=== PATIENT | male | born 1955 | race African-American/Black ===

== ENCOUNTER 2019-04-24 17:16 | Inpatient (IN) | payer OTHER ==
[~2019-04-24] VITALS: Ht 167.6 cm; Wt 80.5 kg
[2019-04-24] MEDS ORDERED: VECURONIUM BROMIDE 10 MG/VIAL IV ONE ×2 (17:31→18:00)
[2019-04-24] MEDS ORDERED: SODIUM CHLORIDE 0.9% 10ML VIAL ONE (17:31)
[2019-04-24] MEDS ORDERED: ETOMIDATE 2MG/ML 10ML VIAL IV ONE ×2 (17:31→18:00)
[2019-04-24] MEDS ORDERED: PROPOFOL 10MG/ML 100ML 100 ML IV ONE ×3 (17:44→22:00)
[2019-04-24] MEDS ORDERED: SODIUM CHLORIDE 0.9% 1000ML BAG (SEPSIS BOLUS) IV ONE (18:00)
[2019-04-24] MEDS ORDERED: HYDROCORTISONE SOD SUCCINATE 100 MG/2 ML VIAL IV ONE (18:00)
[2019-04-24] MEDS ORDERED: VANCOMYCIN 1 G PREMIX 200 ML IV ONE (18:00)
[2019-04-24] MEDS ORDERED: PIPERACILLIN/TAZ 3.375G PREMIX 50 ML IV ONE (18:00)
[2019-04-24 18:23] LABS: BASOPHILS % 0.4 % (0.0-2.0); CHLORIDE 103 mEq/L (98-107); EOSINOPHILS % 0.1 % (0.0-5.0); HEMATOCRIT. 37.1 % (42.0-52.0); HEMOGLOBIN. 12.5 g/dL (14.0-18.0); LYMPHOCYTES % 45.9 % (20.0-50.0); MEAN CORPUSCULAR HEMOGLOBIN 35.7 pg (28.0-32.0); MEAN CORPUSCULAR VOLUME 106.2 fL (80.0-94.0); MEAN PLATELET VOLUME 8.8 fl (7.4-10.4); MONOCYTES % 13.6 % (2.0-8.0); PLATELET 199 x1000/uL (130-400); PROTHROMBIN TIME 10.5 sec (9.6-11.0); RED CELL DISTRIBUTION WIDTH 12.4 % (11.6-14.6)
[2019-04-24 18:28] LABS: ETHANOL BLOOD < 10 mg/dL
[2019-04-24 19:10] LABS: CLARITY URINE TURBID (CLEAR); COLOR URINE DARK YELLOW (YELLOW); KETONES URINE NEGATIVE (NEGATIVE); LEUKOCYTE ESTERASE URINE NEGATIVE (NEGATIVE); NITRITE URINE NEGATIVE (NEGATIVE); OCCULT BLOOD URINE 3+ (NEGATIVE); PROTEIN URINE 3+ (NEGATIVE); SPECIFIC GRAVITY URINE 1.022 (1.005-1.030)
[2019-04-24 19:37] LABS: *AMPHETAMINES SCREEN URINE NEGATIVE (NEGATIVE); *BARBITURATES SCREEN URINE NEGATIVE (NEGATIVE); *BENZODIAZEPINES SCREEN URINE NEGATIVE (NEGATIVE); *COCAINE SCREEN URINE NEGATIVE (NEGATIVE); CANNABINOID URINE SCREEN PRESUMTIVE POSITIVE (NEGATIVE); METHADONE URINE SCREEN NEGATIVE (NEGATIVE); OPIATES URINE SCREEN NEGATIVE (NEGATIVE); PHENCYCLIDINE URINE SCREEN NEGATIVE (NEGATIVE)
[2019-04-24] MEDS ORDERED: ENOXAPARIN 80MG/0.8ML SYR SUBCUT ONE (20:30)
[2019-04-24] MEDS ORDERED: FUROSEMIDE 40MG/4ML VIAL IVP ONE (20:45)
[2019-04-24 20:52] LABS: BG BASE EXCESS -5.3 mmol/L (-2.0-2.0); BG CARBOXYHEMOGLOBIN 0.6 % (0.5-1.5); BG DEOXYHEMOGLOBIN 18.1 % (0.0-5.0); BG FRACTION INSPIRED OXYGEN 100; BG HCO3 ACT 23.7 mmol/L (22.0-26.0); BG METHEMOGLOBIN 0.1 % (0.0-1.5); BG OXYGEN SATURATION 81.8 % (92.0-98.5); BG OXYHEMOGLOBIN 81.2 % (94.0-97.0); BG PCO2 62.6 mmHg (35.0-45.0); BG PH 7.196 (7.350-7.450); BG SAMPLE SITE RIGHT BRACHIAL; BG TIDAL VOLUME(mL) 500 mL; BG TOTAL HEMOGLOBIN 12.9 g/dL (12.0-18.0); BG VENT MODE VENT - A/C; BG VENT RATE 14 set
[2019-04-24] MEDS ORDERED: DEXTROSE 50% WATER 50ML SYRINGE IV PRN (21:15)
[2019-04-24] MEDS ORDERED: DIPHENHYDRAMINE 50MG/ML VIAL IV PRN (21:15)
[2019-04-24] MEDS ORDERED: ASPIRIN 325MG TABLET NG NR (21:15)
[2019-04-24] MEDS ORDERED: LORAZEPAM 2MG/ML CPJ IV PRN (21:15)
[2019-04-24] MEDS ORDERED: ONDANSETRON HCL 4MG/2ML INJ IV PRN (21:15)
[2019-04-24] MEDS ORDERED: CLOPIDOGREL 75MG TABLET NG NR (21:15)
[2019-04-24] MEDS ORDERED: ACETAMINOPHEN 650MG/20.3ML UDC NG PRN (21:15)
[2019-04-24 21:18] LABS: CREATINE KINASE MB FRACTION 18.4 ng/mL (0.5-3.6)
[2019-04-24] MEDS: SODIUM CHLORIDE 0.9% 1,000 ML IV SCH (22:03)
[2019-04-24 22:09] LABS: BG CARBOXYHEMOGLOBIN 0.6 % (0.5-1.5); BG FRACTION INSPIRED OXYGEN 100; BG HCO3 ACT 21.1 mmol/L (22.0-26.0); BG METHEMOGLOBIN 0.1 % (0.0-1.5); BG OXYGEN SATURATION 86.9 % (92.0-98.5); BG OXYHEMOGLOBIN 86.3 % (94.0-97.0); BG PCO2 38.6 mmHg (35.0-45.0); BG PH 7.356 (7.350-7.450); BG PO2 55.3 mmHg (75.0-100.0); BG SAMPLE SITE RIGHT BRACHIAL; BG TIDAL VOLUME(mL) 550 mL; BG TOTAL HEMOGLOBIN 12.9 g/dL (12.0-18.0); BG VENT MODE VENT - A/C; BG VENT RATE 14 set
[2019-04-24 23:05] VITALS: BP 145/98
[2019-04-24 23:10] VITALS: BP 145/98
[2019-04-24 23:15] VITALS: BP 147/90
[2019-04-24 23:30] VITALS: BP 140/90
[2019-04-24 23:45] VITALS: BP 140/90
[2019-04-25] VITALS (72 sets, daily range): BP systolic 78–149; BP diastolic 27–100
[2019-04-25] MEDS ORDERED: INSULIN LISPRO 100 UNITS/ML SUBCUT SCH ×2
[2019-04-25] MEDS ORDERED: BLOOD SUGAR DIAGNOSTIC STRIP TEST SCH
[2019-04-25] MEDS: BLOOD SUGAR DIAGNOSTIC STRIP TEST SCH ×6 (00:14→20:56)
[2019-04-25] MEDS: FUROSEMIDE 40MG/4ML VIAL IVP SCH ×2 (00:14→12:00)
[2019-04-25] MEDS: NITROGLYCERIN OINT 1GM/INCH UDPKT TD SCH ×3 (00:14→16:31)
[2019-04-25] MEDS: INSULIN LISPRO 100 UNITS/ML SUBCUT SCH ×7 (00:21→23:43)
[2019-04-25] MEDS: PROPOFOL 10MG/ML 100ML 100 ML IV PRN ×2 (00:56→18:41)
[2019-04-25] MEDS: ALBUTEROL (0.083%) 2.5MG/3ML NEB HHN SCH ×6 (01:19→21:16)
[2019-04-25] MEDS: VANCOMYCIN 1 G PREMIX 200 ML IV SCH ×2 (01:55→14:14)
[2019-04-25 02:18] LABS: BG BASE EXCESS -5.6 mmol/L (-2.0-2.0); BG CARBOXYHEMOGLOBIN 0.4 % (0.5-1.5); BG DEOXYHEMOGLOBIN 0.9 % (0.0-5.0); BG FRACTION INSPIRED OXYGEN 100; BG HCO3 ACT 18.1 mmol/L (22.0-26.0); BG METHEMOGLOBIN 0.4 % (0.0-1.5); BG OXYGEN SATURATION 99.1 % (92.0-98.5); BG OXYHEMOGLOBIN 98.3 % (94.0-97.0); BG PCO2 31.6 mmHg (35.0-45.0); BG PH 7.377 (7.350-7.450); BG SAMPLE SITE LEFT BRACHIAL; BG TIDAL VOLUME(mL) 600 mL; BG TOTAL HEMOGLOBIN 17.3 g/dL (12.0-18.0); BG VENT MODE VENT - A/C; BG VENT RATE 16 set
[2019-04-25] MEDS: PIPERACILLIN/TAZ 3.375G PREMIX 50 ML IV SCH ×3 (04:10→20:43)
[2019-04-25 05:37] LABS: BASOPHILS % 0.2 % (0.0-2.0); HEMATOCRIT. 34.6 % (42.0-52.0); LYMPHOCYTES % 46.1 % (20.0-50.0); MEAN CORPUSCULAR HEMOGLOBIN 36.4 pg (28.0-32.0); MEAN CORPUSCULAR VOLUME 105.4 fL (80.0-94.0); MEAN PLATELET VOLUME 8.3 fl (7.4-10.4); MONOCYTES % 12.5 % (2.0-8.0); NEUTROPHILS % 41.2 % (40.0-76.0); PLATELET 144 x1000/uL (130-400); RED BLOOD CELL COUNT 3.29 mill/uL (4.7-6.1); RED CELL DISTRIBUTION WIDTH 12.5 % (11.6-14.6)
[2019-04-25 05:51] LABS: CHLORIDE 106 mEq/L (98-107)
[2019-04-25 06:03] LABS: PHOSPHORUS 3.8 mg/dL (2.5-4.9)
[2019-04-25] MEDS ORDERED: POTASSIUM CHLORIDE 20MEQ/PACKET NG SCH (07:47)
[2019-04-25] MEDS ORDERED: KCL 20MEQ/100ML PREMIX 100 ML IV SCH (08:00)
[2019-04-25] MEDS ORDERED: IODIXANOL 320MG/ML 200ML BOTTLE ONE (08:25)
[2019-04-25] MEDS ORDERED: LIDOCAINE HCL 1% 20ML VIAL (Pyxis) INJ ONE (08:25)
[2019-04-25] MEDS ORDERED: POTASSIUM CHLORIDE INJ 40 MEQ in DEXT 5% WATER 250 ML IV SCH (09:00)
[2019-04-25] MEDS ORDERED: ENOXAPARIN 80MG/0.8ML SYR SUBCUT SCH (09:00)
[2019-04-25] MEDS ORDERED: PIPERACILLIN/TAZOBACTAM 3.375GM/50ML PREMIX IV ONE (09:00)
[2019-04-25] MEDS ORDERED: ACETAMINOPHEN 325MG TABLET PO PRN (09:15)
[2019-04-25] MEDS ORDERED: ATROPINE SULFATE 1MG/10ML SYR IV PRN (09:15)
[2019-04-25] MEDS: CLOPIDOGREL 75MG TABLET PO SCH ×2 (09:15→12:02)
[2019-04-25] MEDS ORDERED: VANCOMYCIN 1 G PREMIX 200 ML IV SCH (10:00)
[2019-04-25 10:17] LABS: BG BASE EXCESS -3.1 mmol/L (-2.0-2.0); BG CARBOXYHEMOGLOBIN 0.3 % (0.5-1.5); BG DEOXYHEMOGLOBIN 0.6 % (0.0-5.0); BG FRACTION INSPIRED OXYGEN 100; BG METHEMOGLOBIN 0.5 % (0.0-1.5); BG OXYGEN SATURATION 99.4 % (92.0-98.5); BG OXYHEMOGLOBIN 98.6 % (94.0-97.0); BG PCO2 34.3 mmHg (35.0-45.0); BG PH 7.405 (7.350-7.450); BG PO2 344.4 mmHg (75.0-100.0); BG SAMPLE SITE RIGHT BRACHIAL; BG TIDAL VOLUME(mL) 600 mL; BG TOTAL HEMOGLOBIN 11.7 g/dL (12.0-18.0); BG VENT MODE VENT - A/C; BG VENT RATE 16 set
[2019-04-25 10:19] LABS: T4 FREE 1.21 ng/dL (0.76-1.46)
[2019-04-25] MEDS ORDERED: PROPOFOL 10MG/ML 100ML 100 ML IV PRN (10:45)
[2019-04-25] MEDS ORDERED: MAGNESIUM 2 G PREMIX 50 ML IV NR (12:00)
[2019-04-25] MEDS: FAMOTIDINE 20MG/2ML VIAL IV SCH ×2 (12:01→20:43)
[2019-04-25 15:23] LABS: CREATINE KINASE MB FRACTION 6.3 ng/mL (0.5-3.6)
[2019-04-25] MEDS: ENOXAPARIN 80MG/0.8ML SYR SUBCUT SCH (16:31)
[2019-04-25] MEDS: SODIUM CHLORIDE 0.9% 1,000 ML IV SCH (20:56)
[2019-04-26] VITALS (38 sets, daily range): BP systolic 92–137; BP diastolic 59–86
[2019-04-26] MEDS: BLOOD SUGAR DIAGNOSTIC STRIP TEST SCH ×5 (00:15→16:30)
[2019-04-26] MEDS: NITROGLYCERIN OINT 1GM/INCH UDPKT TD SCH ×3 (00:21→16:31)
[2019-04-26] MEDS: FUROSEMIDE 40MG/4ML VIAL IVP SCH ×2 (00:21→12:32)
[2019-04-26] MEDS: ALBUTEROL (0.083%) 2.5MG/3ML NEB HHN SCH ×5 (00:27→15:36)
[2019-04-26] MEDS: VANCOMYCIN 1 G PREMIX 200 ML IV SCH (01:06)
[2019-04-26 01:24] LABS: CREATINE KINASE MB FRACTION 2.6 ng/mL (0.5-3.6)
[2019-04-26] MEDS: PIPERACILLIN/TAZ 3.375G PREMIX 50 ML IV SCH ×2 (03:19→12:32)
[2019-04-26] MEDS: INSULIN LISPRO 100 UNITS/ML SUBCUT SCH ×4 (03:21→16:31)
[2019-04-26] MEDS: ENOXAPARIN 80MG/0.8ML SYR SUBCUT SCH (05:31)
[2019-04-26 05:54] LABS: HEMOGLOBIN. 10.3 g/dL (14.0-18.0); MEAN CORPUSCULAR HEMOGLOBIN 35.9 pg (28.0-32.0); MEAN PLATELET VOLUME 8.7 fl (7.4-10.4); PLATELET 136 x1000/uL (130-400); RED BLOOD CELL COUNT 2.88 mill/uL (4.7-6.1); RED CELL DISTRIBUTION WIDTH 12.6 % (11.6-14.6)
[2019-04-26 06:31] LABS: CREATINE KINASE MB FRACTION 1.9 ng/mL (0.5-3.6)
[2019-04-26] MEDS: FAMOTIDINE 20MG/2ML VIAL IV SCH (08:06)
[2019-04-26 08:43] LABS: BG BASE EXCESS 0.8 mmol/L (-2.0-2.0); BG CARBOXYHEMOGLOBIN 0.3 % (0.5-1.5); BG DEOXYHEMOGLOBIN 2.4 % (0.0-5.0); BG FRACTION INSPIRED OXYGEN 40; BG HCO3 ACT 24.2 mmol/L (22.0-26.0); BG METHEMOGLOBIN 0.3 % (0.0-1.5); BG OXYGEN SATURATION 97.6 % (92.0-98.5); BG PCO2 34.2 mmHg (35.0-45.0); BG PH 7.468 (7.350-7.450); BG PO2 105.2 mmHg (75.0-100.0); BG SAMPLE SITE RIGHT BRACHIAL; BG TIDAL VOLUME(mL) 500 mL; BG TOTAL HEMOGLOBIN 10.6 g/dL (12.0-18.0); BG VENT MODE VENT - A/C; BG VENT RATE 16 set
[2019-04-26] MEDS ORDERED: POTASSIUM CHLORIDE INJ 40 MEQ in DEXT 5% WATER 250 ML IV NR (11:00)
[2019-04-26] MEDS ORDERED: PROPOFOL 10MG/ML 100ML 100 ML IV PRN (11:30)
[2019-04-26] MEDS ORDERED: VANCOMYCIN 1 G PREMIX 200 ML IV NR (13:00)
[2019-04-26 13:31] LABS: PLATELET ESTIMATE NORMAL
[2019-04-26] MEDS: SODIUM CHLORIDE 0.9% 1,000 ML IV SCH (15:29)
[2019-04-26] MEDS ORDERED: ATORVASTATIN CALCIUM 40MG TABLET PO SCH (21:00)
[2019-04-26] MEDS ORDERED: ENOXAPARIN 80MG/0.8ML SYR SUBCUT SCH (21:00)
[2019-04-27] MEDS ORDERED: VANCOMYCIN 1 G PREMIX 200 ML IV NR (01:00)
== END 2019-04-26 17:00 | disposition short-term general hospital (02) | DRG 280 ==
LOC: ER 17:16 → MICUSO 20:20 → EDBEDREQTM 20:25 → EDBEDREQ 20:25 → ENRESERV 20:39 → CANRESERV 20:39 → ENRESERV 22:20 → CVICU 04-25 09:04
PROVIDERS: ADMIT Internal Medicine; ATTEND Internal Medicine
PROC: 5A1945Z Respiratory Ventilation, 24-96 Consecutive Hours (ICD-10-PCS; 2019-04-24)
PROC: 0BH17EZ Insertion of Endotracheal Airway into Trachea, Via Natural or Artificial Opening (ICD-10-PCS; 2019-04-24)
PROC: 4A023N7 Measurement of Cardiac Sampling and Pressure, Left Heart, Percutaneous Approach (ICD-10-PCS; principal; 2019-04-25)
PROC: B2111ZZ Fluoroscopy of Multiple Coronary Arteries using Low Osmolar Contrast (ICD-10-PCS; 2019-04-25)
PROC: B2151ZZ Fluoroscopy of Left Heart using Low Osmolar Contrast (ICD-10-PCS; 2019-04-25)
DX: I21.4 Non-ST elevation (NSTEMI) myocardial infarction (principal); G93.41 Metabolic encephalopathy; J81.0 Acute pulmonary edema; J96.00 Acute respiratory failure, unspecified whether with hypoxia or hypercapnia; I50.43 Acute on chronic combined systolic (congestive) and diastolic (congestive) heart failure; T82.858A Stenosis of other vascular prosthetic devices, implants and grafts, initial encounter; I25.5 Ischemic cardiomyopathy; E11.9 Type 2 diabetes mellitus without complications; I11.0 Hypertensive heart disease with heart failure; E87.6 Hypokalemia; I25.10 Atherosclerotic heart disease of native coronary artery without angina pectoris; E78.5 Hyperlipidemia, unspecified; F12.90 Cannabis use, unspecified, uncomplicated; Y83.8 Other surgical procedures as the cause of abnormal reaction of the patient, or of later complication, without mention of misadventure at the time of the procedure; F17.200 Nicotine dependence, unspecified, uncomplicated; N28.9 Disorder of kidney and ureter, unspecified; Z86.73 Personal history of transient ischemic attack (TIA), and cerebral infarction without residual deficits; Y92.89 Other specified places as the place of occurrence of the external cause
CPT/HCPCS: 36415; 36600; 71045; 80048; 80061; 80202; 80305; 80320; 82375; 82550; 82553; 82805; 82962; 83036; 83605; 83721; 83735; 83880; 84100; 84145; 84439; 84443; 84478; 84484; 85379; 87070; 93005; 93306; 93458; 93970; 94002; 94003; 94640; 96365; 96375; 99291; C1760; C1769; C1887; C1893; J1644; J1650; J1720; J1815; J1940; J2543; J2704; J3370; J3475; J3480; J3490; J7030; J7040; J7042; J7050; J7060; J7611; Q9967; G0480